=== PATIENT | female | born 1970 | race Caucasian/White ===

== ENCOUNTER → 2021-07-12 09:43 | Outpatient (BNVA) | payer MEDICARE, BC, SELFPAY | PROVIDERS: PCP Internal Medicine; Referring Provider Chiropractor Orthopedic; Visit Provider Student in an Organized Health Care Education/Training Program | DX: M75.01 Adhesive capsulitis of right shoulder (principal); F54 Psychological and behavioral factors associated with disorders or diseases classified elsewhere | CPT/HCPCS: 99204; 99205 ==